=== PATIENT | male | born 1940 ===

== ENCOUNTER 2019-02-01 05:30 | Day surgery (SDC) | payer OTHER ==
[~2019-02-01 05:30] MED LIST: LISINOPRIL20 MG PO; OMEPRAZOLE20 M2 PO; TAMS0.4C PO
[2019-02-01] MEDS ORDERED: PERCOCET 5-3251 EACH PO (08:41)
[2019-02-01] MEDS ORDERED: KETO10TA2 PO (08:45)
[2019-02-01] MEDS ORDERED: RECTICARE30 GM TOP (08:46)
== END 2019-02-01 14:50 | disposition home or self-care (01) ==
LOC: CIR.AMB 05:30
DX: K64.3 Fourth degree hemorrhoids (principal)